=== PATIENT | female | born 1950 | race Caucasian/White ===

== ENCOUNTER 2017-11-01 16:20 | Inpatient (IN) | payer OTHER, MEDICARE ==
[~2017-11-01] VITALS: Ht 149.9 cm; Wt 65.9 kg
[2017-11-01 16:28] VITALS: BP 166/72; PULSE 79; RESP 16; TEMP 97.9; O2SAT 98
[2017-11-01] MEDS ORDERED: LIPI40TA PO (16:36)
[2017-11-01] MEDS ORDERED: AMLO5 PO (16:36)
--- NOTE | 2017-11-01 17:23 | PD ---
HPI Chief Complaint: Psychiatric Symptoms Time Seen by Provider: 16:57 Travel History International Travel<30 days: No Contact w/Intl Traveler<30days: No Traveled to known affect area: No History of Present Illness HPI 67-year-old female presents under a King act initiated by the police department. According to her paperwork the patient was sent a regular basis, has a history of schizophrenia per her daughter, is noncompliant with medications. The patient denies any history of schizophrenia but she does endorse visual hallucinations. She reports that today she was feeling depressed and she had passive suicidal thoughts. She denies any drug use or alcohol use. She denies any past psychiatric history. She does report that 2- 3 weeks ago she took four Lipitor tablets as a suicidal gesture. She denies any ingestions today. She has no other complaints at this time. PFSH Past Medical History Anxiety: Yes Depression: Yes Cancer: Yes (CERVICAL CA) Cardiovascular Problems: Yes High Cholesterol: Yes Diminished Hearing: No Hypertension: Yes Medical other: Yes (RADIOTHERAPY) Psychiatric: Yes Schizophrenia: Yes Tetanus Vaccination: > 5 Years Influenza Vaccination: No : 5 Para: 5 Past Surgical History Gynecologic Surgery: Yes Hysterectomy: Yes Social History Alcohol Use: Yes Tobacco Use: No Substance Use: No Allergies-Medications (Allergen,Severity, Reaction): Coded Allergies: No Known Allergies (Verified Allergy, Unknown, 11/01/17) Reported Meds & Prescriptions Reported Meds & Active Scripts Active Reported Norvasc (Amlodipine Besylate) 5 Mg Tab 5 Mg PO DAILY Lipitor (Atorvastatin Calcium) 40 Mg Tab 40 Mg PO HS Review of Systems Except as stated in HPI: all other systems reviewed are Neg Physical Exam Narrative GENERAL: Well-developed well-nourished female in no acute distress SKIN: Warm and dry. HEAD: Atraumatic. Normocephalic. EYES: Pupils equal and round. No scleral icterus. No injection or drainage. ENT: No nasal bleeding or discharge. Mucous membranes pink and moist. NECK: Trachea midline. No JVD. CARDIOVASCULAR: Regular rate and rhythm. No murmur appreciated. RESPIRATORY: No accessory muscle use. Clear to auscultation. Breath sounds equal bilaterally. GASTROINTESTINAL: Abdomen soft, non-tender, nondistended. Hepatic and splenic margins not palpable. MUSCULOSKELETAL: No obvious deformities. No clubbing. No cyanosis. No edema. NEUROLOGICAL: Awake and alert. No obvious cranial nerve deficits. Motor grossly within normal limits. Normal speech. PSYCHIATRIC: Appropriate mood and affect; insight and judgment normal. Data Data Last Documented VS Vital Signs Date Time Temp Pulse Resp B/P (MAP) Pulse Ox O2 Delivery O2 Flow Rate FiO2 11/01/17 16:30 76 11/01/17 16:28 97.9 16 166/72 (103) 98 Orders Orders Complete Blood Count With Diff (11/01/17 16:39) Comprehensive Metabolic Panel (11/01/17 16:39) Thyroid Stimulating Hormone (11/01/17 16:39) Psych Screen (11/01/17 16:39) Drug Screen, Random Urine (11/01/17 16:39) Alcohol (Ethanol) (11/01/17 16:39) Labs Laboratory Tests Test 11/01/17 16:52 White Blood Count 9.5 TH/MM3 Red Blood Count 4.87 MIL/MM3 Hemoglobin 13.7 GM/DL Hematocrit 40.2 % Mean Corpuscular Volume 82.6 FL Mean Corpuscular Hemoglobin 28.1 PG Mean Corpuscular Hemoglobin Concent 34.0 % Red Cell Distribution Width 14.5 % Platelet Count 248 TH/MM3 Mean Platelet Volume 8.5 FL Neutrophils (%) (Auto) 75.5 % Lymphocytes (%) (Auto) 16.6 % Monocytes (%) (Auto) 6.3 % Eosinophils (%) (Auto) 1.1 % Basophils (%) (Auto) 0.5 % Neutrophils # (Auto) 7.2 TH/MM3 Lymphocytes # (Auto) 1.6 TH/MM3 Monocytes # (Auto) 0.6 TH/MM3 Eosinophils # (Auto) 0.1 TH/MM3 Basophils # (Auto) 0.0 TH/MM3 CBC Comment DIFF FINAL Differential Comment Blood Urea Nitrogen 14 MG/DL Creatinine 0.67 MG/DL Random Glucose 84 MG/DL Total Protein 7.3 GM/DL Albumin 3.7 GM/DL Calcium Level 9.6 MG/DL Alkaline Phosphatase 154 U/L Aspartate Amino Transf (AST/SGOT) 13 U/L Alanine Aminotransferase (ALT/SGPT) 24 U/L Total Bilirubin 0.6 MG/DL Sodium Level 140 MEQ/L Potassium Level 3.1 MEQ/L Chloride Level 105 MEQ/L Carbon Dioxide Level 29.2 MEQ/L Anion Gap 6 MEQ/L Estimat Glomerular Filtration Rate 88 ML/MIN Thyroid Stimulating Hormone 3rd Gen 1.570 uIU/ML Ethyl Alcohol Level LESS THAN 3 MG/DL MDM Medical Decision Making Medical Screen Exam Complete: Yes Emergency Medical Condition: Yes Medical Record Reviewed: Yes Differential Diagnosis Schizophrenia, medication noncompliance, acute psychosis, substance induced mood disorder, encephalitis Narrative Course 67-year-old female presents under King act for psychiatric evaluation Mental health screening discussed with the patient. Psychiatric screen ordered. Potassium 3.1, oral potassium chloride was ordered. The patient is medically psychiatric disposition. Diagnosis Primary Impression: Auditory hallucinations Additional Impressions: Suicidal ideation Hypokalemia Jesse Jones Nov 01, 2017 17:23
[2017-11-01 17:25] LABS: AUTOMATED NEUTROPHIL # 7.2 TH/MM3 (1.8-7.7); BASOPHIL % 0.5 % (0.0-2.0); EOSINOPHIL # 0.1 TH/MM3 (0-0.4); EOSINOPHIL % 1.1 % (0.0-4.0); HEMATOCRIT 40.2 % (35.0-46.0); HEMOGLOBIN 13.7 GM/DL (11.6-15.3); LYMPH % 16.6 % (9.0-44.0); LYMPHOCYTE # 1.6 TH/MM3 (1.0-4.8); MEAN CELL VOLUME 82.6 FL (80.0-100.0); MEAN CORPUSCULAR HEMOGLOBIN 28.1 PG (27.0-34.0); MEAN PLATELET VOLUME 8.5 FL (7.0-11.0); MONO % 6.3 % (0.0-8.0); MONOCYTE # 0.6 TH/MM3 (0-0.9); NEUT % 75.5 % (16.0-70.0); PLATELET COUNT 248 TH/MM3 (150-450); RED BLOOD COUNT 4.87 MIL/MM3 (4.00-5.30); RED CELL DISTRIBUTION WIDTH 14.5 % (11.6-17.2); WHITE BLOOD COUNT 9.5 TH/MM3 (4.0-11.0)
[2017-11-01 17:36] LABS: ALBUMIN 3.7 GM/DL (3.4-5.0); AST (GOT) 13 U/L (15-37); BICARBONATE 29.2 MEQ/L (21.0-32.0); BLOOD UREA NITROGEN 14 MG/DL (7-18); CALCIUM 9.6 MG/DL (8.5-10.1); CHLORIDE 105 MEQ/L (98-107); CREATININE 0.67 MG/DL (0.50-1.00); GLOMERULAR FILTRATION RATE 88 ML/MIN (>89); GLUCOSE,RANDOM 84 MG/DL (74-106); SODIUM (NA) 140 MEQ/L (136-145)
[2017-11-01 17:37] LABS: ALT (GPT) 24 U/L (10-53)
[2017-11-01 17:46] LABS: ALKALINE PHOSPHATASE 154 U/L (45-117); TOTAL BILIRUBIN ADULT 0.6 MG/DL (0.2-1.0); TOTAL PROTEIN 7.3 GM/DL (6.4-8.2)
[2017-11-01] MEDS ORDERED: POTASSIUM CHLORIDE 20 MEQ CONTROLLED RELEASE TAB PO ONE (18:15)
[2017-11-01] MEDS ORDERED: amLODIPine BESYLATE 5 MG TAB PO ONE (22:00)
[2017-11-02 02:00] VITALS: BP 173/88; PULSE 82; RESP 16; TEMP 97.8; O2SAT 98
[2017-11-02] MEDS ORDERED: diphenhydrAMINE HCL 50 MG/ML VIAL IM PRN (03:00)
[2017-11-02] MEDS ORDERED: ALUMINUM/MAGNESIUM/SIMETH 30 ML CUP PO PRN ×2 (03:00→13:45)
[2017-11-02] MEDS ORDERED: ACETAMINOPHEN 325 MG TAB PO PRN (03:00)
[2017-11-02] MEDS ORDERED: MAGNESIUM HYDROXIDE SUSP 30 ML CUP PO PRN ×2 (03:00→13:45)
[2017-11-02] MEDS ORDERED: LORazepam 2 MG/ML VIAL - age > 65 yrs IM PRN (03:00)
[2017-11-02] MEDS ORDERED: LORazepam 0.5 MG TAB age > 65 yrs PO PRN (03:00)
[2017-11-02] MEDS ORDERED: diphenhydrAMINE HCL 50 MG CAP PO PRN ×2 (03:00→21:00)
[2017-11-02 05:30] VITALS: BP 172/69; PULSE 73; RESP 18; TEMP 97.4; O2SAT 99
[2017-11-02 08:42] LABS: BICARBONATE 29.6 MEQ/L (21.0-32.0); BLOOD UREA NITROGEN 11 MG/DL (7-18); CALCIUM 9.1 MG/DL (8.5-10.1); CHLORIDE 107 MEQ/L (98-107); CREATININE 0.62 MG/DL (0.50-1.00); GLOMERULAR FILTRATION RATE 97 ML/MIN (>89); GLUCOSE,RANDOM 94 MG/DL (74-106); SODIUM (NA) 143 MEQ/L (136-145)
[2017-11-02 08:43] LABS: CHOLESTEROL 111 MG/DL (120-200); TRIGLYCERIDES 93 MG/DL (42-150)
[2017-11-02 08:46] LABS: CHOLESTEROL/ HDL RATIO 2.41 RATIO; LDL CHOLESTEROL 46 MG/DL (0-99)
[2017-11-02 11:02] LABS: HEMOGLOBIN A1C 5.6 % (4.3-6.0)
[2017-11-02] MEDS ORDERED: hydrOXYzine HCL 50 MG TAB PO PRN (13:45)
--- NOTE | 2017-11-02 14:04 | HHI.HP ---
Provisional Diagnosis Admission Date Nov 02, 2017 at 00:59 [place] I. 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 Express and informed consent means consent voluntarily given in writing, by a competent person, after sufficient explanation and disclosure of the subject matter involved to enable the person to make a knowing and willful decision without any element of force, fraud, deceit, duress, or other form of constraint or coercion. This person is 18 years of age or older, is not now known to be incompetent to consent to treatment with a guardian advocate, and does not have a health care surrogate or proxy currently making medical treatment decisions. I have found this person to be one of the following: xxx[] Competent to provide express and informed consent, as defined above, for voluntary admission to this facility and is competent to provide express and informed consent for treatment. He/she has the consistent capacity to make well reasoned, willful, and knowing decisions concerning his or her medical or mental health treatment. The person fully and consistently understands the purpose of the admission for examination/placement and is fully capable of personally exercising all rights assured [place] Incompetent to provide express and informed consent to voluntary admission, and this is incompetent to provide express and informed consent to treatment. The person must be transferred to involuntary status and a petition for a guardian advocate filed with the Circuit Court. [] Refusing to provide express and informed consent to voluntary admission but is competent to provide express and informed consent for treatment. The person must be discharged or transferred to involuntary status. Form shall be completed within 24 hours of a person's arrival at the receiving facility and filed in the clinical record of each person: 1. Admitted on a voluntary basis 2. Permitted to provide express and informed consent to his/her own treatment 3. Allowed to transfer from involuntary to voluntary status 4. Prior to permitting a person to consent to his or her own treatment after having been previously found incompetent to consent to treatment. History of Present Illness Capacity: Has Capacity Psych Chief Complaint: patient sad with increased auditory hallucinations HPI Patient is a 67 her white female who initially comes here under King act by the [facility]'s office dated 11/01/17 to 20 p.m. that document reviewed and initially states that upon speaking with Rose she advised that she hears voices on a regular basis that she has been advised that they are not real where she believes that they are Rose's daughter Hannah advised that Rose was diagnosed with schizophrenia and is off her medications were Rose denies any such diagnoses Rose advised me that the voices say that they are going to take her grandson and that approximately 2-3 weeks ago she took for a 12 a statin 40 mg tablets with intent to kill herself but only made her sick Rose also advised that she had thoughts of killing herself today but she is not going to do it. Patient seen screened in the ED urine toxicology negative blood alcohol level negative. Patient seen in her room with nurse Roxi. She is alert oriented [place] female. She is calm and cooperative with me she acknowledges fairly rapid onset of auditory hallucinations of people talking to her a few weeks ago. She states these voices a somewhat threatening to her. She states she feels better and safe here on the psychiatric unit. She denies any alcohol or drugs related to this. She denies any prior psychiatric contact hospitalization her psychotropic medications. She is a her of 47 years about 2 years ago she acknowledges continued depression with crying spells there is insomnia has been aggravated by the auditory hallucinations. There is decreased concentration and attention with increased irritability. He does mention is been some intermittent suicidal ideation. Patient lives with her mother who is 80+ years old and her 4-year-old grandson by her son. It appears the boys mother is incarcerated. We did discuss treatment. I feel the slight does have a of depression that may be the underlying etiology of the psychotic features. We did discuss medications we'll start patient on Lexapro 10 mg in the morning and Zyprexa 5 mg at bedtime. I do feel this patient has the capacity to sign for her hospitalization and for medications thus I'll lift the King act allow patient to sign voluntary. Hopeless to be fairly short Meredith temperature family with follow-up mental health care the community Review of Systems Constitutional: DENIES: Diaphoretic episodes, Fatigue, Fever, Weight gain, Weight loss, Chills, Dizziness, Change in appetite, Night Sweats Endocrine: DENIES: Abnorml menstrual pattern, Heat/cold intolerance, Polydipsia , Polyuria, Polyphagia Eyes: DENIES: Blurred vision, Diplopia, Eye inflammation, Eye pain, Vision loss , Photosensitivity, Double Vision Ears, nose, mouth, throat: DENIES: Tinnitus, Hearing loss, Vertigo, Nasal discharge, Oral lesions, Throat pain, Hoarseness, Ear Pain, Running Nose, Epistaxis, Sinus Pain, Toothache, Odynophagia Respiratory: DENIES: Apneas, Cough, Snoring, Wheezing, Hemoptysis, Sputum production, Shortness of breath Cardiovascular: DENIES: Chest pain, Palpitations, Syncope, Dyspnea on Exertion , PND, Lower Extremity Edema, Orthopnea, Claudication Gastrointestinal: DENIES: Abdominal pain, Black stools, Bloody stools, Constipation, Diarrhea, Nausea, Vomiting, Difficulty Swallowing, Anorexia Genitourinary: DENIES: Abnormal vaginal bleeding, Dysmenorrhea, Dyspareunia, Sexual dysfunction, Urinary frequency, Urinary incontinence, Urgency, Hematuria , Dysuria, Nocturia, Vaginal discharge Musculoskeletal: DENIES: Joint pain, Muscle aches, Stiffness, Joint Swelling, Back pain, Neck pain Integumentary: DENIES: Abnormal pigmentation, Pruritus, Rash, Nail changes, Breast masses, Breast skin changes, Nipple discharge Hematologic/lymphatic: DENIES: Bruising, Lymphadenopathy Immunologic/allergic: DENIES: Eczema, Urticaria Neurologic: DENIES: Abnormal gait, Headache, Localized weakness, Paresthesias, Seizures, Speech Problems, Tremor, Poor Balance Psychiatric: COMPLAINS OF: Anxiety, Depression, Hallucinations, Suicidal Ideation Past Psych History Psychological trauma history Patient denies Violence risk - others (6 mos) Low Violence risk - self (6 mos) Low to moderate Substance Abuse History Drugs/Alcohol past 12 months Denies Past Family Social History Coded Allergies: No Known Allergies (Verified Allergy, Unknown, 11/01/17) Reported Medications Amlodipine (Norvasc) 5 Mg Tab, 5 MG PO DAILY for Blood Pressure Management, #30 TAB 0 Refills 11/01/17 Atorvastatin (Lipitor) 40 Mg Tab, 40 MG PO HS for Cholesterol Management, #30 TAB 0 Refills 11/01/17 Current Medications Medications (Trade) Dose Ordered Sig/Mary Beth Route Start Time Stop Time Status Last Admin (Tylenol) 650 mg Q4H PRN PO 11/02/17 03:00 (Milk Of Magnesia Liq) 30 ml DAILY PRN PO 11/02/17 03:00 (Mag-Al Plus Susp Liq) 30 ml Q6H PRN PO 11/02/17 03:00 (Lexapro) 10 mg DAILY PO 11/03/17 09:00 UNV (ZyPREXA) 5 mg HS PO 11/02/17 21:00 UNV (Benadryl) 50 mg HS PRN PO 11/02/17 13:45 UNV (Milk Of Magnesia Liq) 30 ml DAILY PRN PO 11/02/17 13:45 UNV (Mag-Al Plus Susp Liq) 30 ml Q6H PRN PO 11/02/17 13:45 UNV (Atarax) 50 mg Q6H PRN PO 11/02/17 13:45 UNV (Norvasc) 5 mg DAILY PO 11/03/17 09:00 UNV (Lipitor) 40 mg HS PO 11/02/17 21:00 UNV Family Psych History Denies Social History Patient was made 49 years 2 years ago patient has 4 daughters Patient's Strengths (min. 2) Patient verbal intellect is health care cooperative Physical Exam Patient medically cleared in ED at the present time patient sitting quietly in her room she is in no acute distress, no respiratory distress, no complaints of abdominal pain, patient moves all 4 extremities some pain in her right leg patient does use a walker Vital Signs Vital Signs Date Time Temp Pulse Resp B/P (MAP) Pulse Ox O2 Delivery O2 Flow Rate FiO2 11/02/17 05:30 97.4 73 18 172/69 (103) 99 I/O 11/02/17 11/02/17 11/03/17 08:00 16:00 00:00 Intake Total 240 ml 240 ml Balance 240 ml 240 ml Lab Results Test 11/01/17 16:52 11/01/17 16:54 11/02/17 06:11 White Blood Count 9.5 TH/MM3 Red Blood Count 4.87 MIL/MM3 Hemoglobin 13.7 GM/DL Hematocrit 40.2 % Mean Corpuscular Volume 82.6 FL Mean Corpuscular Hemoglobin 28.1 PG Mean Corpuscular Hemoglobin Concent 34.0 % Red Cell Distribution Width 14.5 % Platelet Count 248 TH/MM3 Mean Platelet Volume 8.5 FL Neutrophils (%) (Auto) 75.5 % Lymphocytes (%) (Auto) 16.6 % Monocytes (%) (Auto) 6.3 % Eosinophils (%) (Auto) 1.1 % Basophils (%) (Auto) 0.5 % Neutrophils # (Auto) 7.2 TH/MM3 Lymphocytes # (Auto) 1.6 TH/MM3 Monocytes # (Auto) 0.6 TH/MM3 Eosinophils # (Auto) 0.1 TH/MM3 Basophils # (Auto) 0.0 TH/MM3 CBC Comment DIFF FINAL Differential Comment Blood Urea Nitrogen 14 MG/DL 11 MG/DL Creatinine 0.67 MG/DL 0.62 MG/DL Random Glucose 84 MG/DL 94 MG/DL Total Protein 7.3 GM/DL Albumin 3.7 GM/DL Calcium Level 9.6 MG/DL 9.1 MG/DL Alkaline Phosphatase 154 U/L Aspartate Amino Transf (AST/SGOT) 13 U/L Alanine Aminotransferase (ALT/SGPT) 24 U/L Total Bilirubin 0.6 MG/DL Sodium Level 140 MEQ/L 143 MEQ/L Potassium Level 3.1 MEQ/L 3.3 MEQ/L Chloride Level 105 MEQ/L 107 MEQ/L Carbon Dioxide Level 29.2 MEQ/L 29.6 MEQ/L Anion Gap 6 MEQ/L 6 MEQ/L Estimat Glomerular Filtration Rate 88 ML/MIN 97 ML/MIN Thyroid Stimulating Hormone 3rd Gen 1.570 uIU/ML Ethyl Alcohol Level LESS THAN 3 MG/DL Urine Opiates Screen NEG Urine Barbiturates Screen NEG Urine Amphetamines Screen NEG Urine Benzodiazepines Screen NEG Urine Cocaine Screen NEG Urine Cannabinoids Screen NEG Hemoglobin A1c 5.6 % Triglycerides Level 93 MG/DL Cholesterol Level 111 MG/DL LDL Cholesterol 46 MG/DL HDL Cholesterol 46.0 MG/DL Cholesterol/HDL Ratio 2.41 RATIO Mental Status Examination Appearance: Appropriate Consciousness: Alert Orientation: x4 Motor Activity: Other (patient uses walker has chronic issues with right leg) Speech: Unremarkable Language: Adequate Fund of Knowledge: Adequate Attention and Concentration: Adequate Memory: Unremarkable Mood: Sad Affect: Other (slight decrease range and intensity) Thought Process & Associations: Linear Thought Content: Hallucinations Hallucination Type: Visual Delusion Type: Paranoid Suicidal Ideation: No (patient denies) Suicidal Plan: No Suicidal Intention: No Homicidal Ideation: No Homicidal Plan: No Homicidal Intention: No Insight: Poor Judgment: Poor Assessment & Plan Problem List: (1) Depression, major, recurrent, severe with psychosis ICD Codes: F33.3 - Major depressive disorder, recurrent, severe with psychotic symptoms Assessment & Plan Estimated LOS: 5-7 days this time patient meets criteria for inpatient psychiatric hospitalization. I feel she has the capacity to sign voluntary thus will lift King act allow her sign voluntary. We will hospitalist consult will us related to a medical issues. We'll start medication as listed above. Discharge Planning Probable return home to family Request HC Surrog/Guard Advoc?: No Carlito Fisher MD Nov 02, 2017 14:04
--- NOTE | 2017-11-02 17:45 | PD.CONS ---
HPI Service [facility] Hospitalists Consult Requested By Dr Fisher Reason for Consult Management of medical conditions. Primary Care Physician Unknown Diagnoses: History of Present Illness This is a 67-year-old female with past medical history of hypertension, hyperlipidemia who presents to [facility] under a King act by the [facility]'s office dated 11/01/17. The King act documented initially states that upon speaking with Barb she said that she was doing boluses on a regular basis and that she has been advised that they are not real. Patient's daughter states that the patient has history of schizophrenia and is of her medications. Apparently the patient stated she had suicidal thoughts. The patient states that she was crying a lot and that is why her daughter called the police. The patient denies chest pain, shortness of breath , admits of headache which he usually attributes to elevated blood pressure. RN also states that the patient's potassium is low. Otherwise the patient denies any dysuria, abdominal pain, nausea, vomiting, cough, shortness of breath. I am being consulted to help manage medical issues. Review of Systems As per HPI, other systems reviewed by me and negative. Past Family Social History Allergies: Coded Allergies: No Known Allergies (Verified Allergy, Unknown, 11/01/17) Past Medical History Hypertension, hyperlipidemia, cervical cancer status post total abdominal hysterectomy status post chemotherapy and radiation therapy. Past Surgical History Total abdominal hysterectomy with bilateral salpingo-oophorectomy. Reported Medications Reported Meds & Active Scripts Active Reported Norvasc (Amlodipine Besylate) 5 Mg Tab 5 Mg PO DAILY Lipitor (Atorvastatin Calcium) 40 Mg Tab 40 Mg PO HS Active Ordered Medications Current Medications Medications (Trade) Dose Ordered Sig/Mary Beth Route Start Time Stop Time Status Last Admin (Tylenol) 650 mg Q4H PRN PO 11/02/17 03:00 (Milk Of Magnesia Liq) 30 ml DAILY PRN PO 11/02/17 03:00 (Mag-Al Plus Susp Liq) 30 ml Q6H PRN PO 11/02/17 03:00 (Lexapro) 10 mg DAILY PO 11/03/17 09:00 (ZyPREXA) 5 mg HS PO 11/02/17 21:00 11/02/17 20:02 (Benadryl) 50 mg HS PRN PO 11/02/17 21:00 (Atarax) 50 mg Q6H PRN PO 11/02/17 13:45 (Lipitor) 40 mg HS PO 11/02/17 21:00 11/02/17 20:02 (Catapres) 0.1 mg Q6H PRN PO 11/02/17 17:30 11/02/17 18:00 (Norvasc) 10 mg DAILY PO 11/02/17 18:00 11/02/17 18:00 Family History Patient's mother had diabetes and hypertension. Social History Patient denies smoking. The patient states that she occasionally drinks wine. The patient denies illicit drug use. The patient states she is and has 5 children. Physical Exam Vital Signs Vital Signs Date Time Temp Pulse Resp B/P (MAP) Pulse Ox O2 Delivery O2 Flow Rate FiO2 11/02/17 05:30 97.4 73 18 172/69 (103) 99 11/02/17 02:00 97.8 82 16 173/88 (116) 98 Physical Exam GENERAL: This is a well-nourished, well-developed patient, in no apparent distress. SKIN: No rashes, ecchymoses or lesions. Cool and dry. HEAD: Atraumatic. Normocephalic. No temporal or scalp tenderness. EYES: Pupils equal round and reactive. Extraocular motions intact. No scleral icterus. No injection or drainage. ENT: Nose without bleeding, purulent drainage or septal hematoma. Throat without erythema, tonsillar hypertrophy or exudate. Uvula midline. Airway patent. NECK: Trachea midline. No JVD or lymphadenopathy. Supple, nontender, no meningeal signs. CARDIOVASCULAR: Regular rate and rhythm without murmurs, gallops, or rubs. RESPIRATORY: Clear to auscultation. Breath sounds equal bilaterally. No wheezes , rales, or rhonchi. GASTROINTESTINAL: Abdomen soft, non-tender, nondistended. No hepato-splenomegaly , or palpable masses. No guarding. MUSCULOSKELETAL: Extremities without clubbing, cyanosis, or edema. No joint tenderness, effusion, or edema noted. No calf tenderness. Negative Homans sign bilaterally. NEUROLOGICAL: Awake and alert. Cranial nerves II through XII intact. Motor and sensory grossly within normal limits. Five out of 5 muscle strength in all muscle groups. Normal speech. Laboratory Laboratory Tests Test 2/28/18 06:11 Blood Urea Nitrogen 11 Creatinine 0.62 Random Glucose 94 Calcium Level 9.1 Sodium Level 143 Potassium Level 3.3 Chloride Level 107 Carbon Dioxide Level 29.6 Anion Gap 6 Estimat Glomerular Filtration Rate 97 Hemoglobin A1c 5.6 Triglycerides Level 93 Cholesterol Level 111 LDL Cholesterol 46 HDL Cholesterol 46.0 Cholesterol/HDL Ratio 2.41 Result Diagram: 11/01/17 1652 11/02/17 0611 Assessment and Plan Problem List: (1) Suicidal ideation ICD Code: R45.851 - Suicidal ideations Status: Acute Plan: Management of psychiatric issues as per psychiatry. Patient has been started on Zyprexa and Lexapro. (2) Depression, major, recurrent, severe with psychosis ICD Code: F33.3 - Major depressive disorder, recurrent, severe with psychotic symptoms Plan: Management as per psychiatry. (3) Hypokalemia ICD Code: E87.6 - Hypokalemia Status: Acute Plan: Likely secondary to decreased oral intake. Replace orally and continue to monitor BMP. (4) Uncontrolled hypertension ICD Code: I10 - Essential (primary) hypertension Plan: Patient blood pressure severely elevated in the 170 systolic. Resume amlodipine 10 mg p.o. daily now and will place on clonidine 0.1 mg p.o. every 6 hours as needed for systolic blood pressure more than 160. Monitor vital signs. (5) Hyperlipidemia ICD Code: E78.5 - Hyperlipidemia, unspecified Plan: Continue statin. Fasting lipid profile shows an LDL of 46, total cholesterol 111. Assessment and Plan DVT prophylaxis: Encourage ambulation. Code Status Full code Discussed Condition With Patient, RN. Problem Qualifiers (1) Hyperlipidemia: Qualified Codes: E78.5 - Hyperlipidemia, unspecified Dorian Weber MD Nov 02, 2017 17:45
[2017-11-02 18:00] VITALS: BP 178/81; PULSE 80; RESP 18; TEMP 97.5; O2SAT 99
[2017-11-02] MEDS: cloNIDine HCL 0.1 MG TAB PO PRN (18:00)
[2017-11-02] MEDS ORDERED: POTASSIUM CHLORIDE 10 MEQ CONTROLLED RELEASE TAB PO ONE (18:00)
[2017-11-02 20:00] VITALS: BP 134/62; PULSE 75; RESP 16; TEMP 97.9; O2SAT 99
[2017-11-02] MEDS: ATORVASTATIN 40 MG TAB PO SCH (20:02)
[2017-11-02] MEDS: OLANZapine 5 MG TAB PO SCH (20:02)
[2017-11-03 05:44] VITALS: BP 127/63; PULSE 68; RESP 16; TEMP 98.1; O2SAT 100
[2017-11-03 06:18] LABS: ALBUMIN 2.9 GM/DL (3.4-5.0); ALT (GPT) 19 U/L (10-53); AST (GOT) 14 U/L (15-37); BICARBONATE 28.3 MEQ/L (21.0-32.0); BLOOD UREA NITROGEN 18 MG/DL (7-18); CALCIUM 8.7 MG/DL (8.5-10.1); CHLORIDE 108 MEQ/L (98-107); CREATININE 0.64 MG/DL (0.50-1.00); GLOMERULAR FILTRATION RATE 93 ML/MIN (>89); GLUCOSE,RANDOM 96 MG/DL (74-106); SODIUM (NA) 142 MEQ/L (136-145)
[2017-11-03 06:31] LABS: ALKALINE PHOSPHATASE 110 U/L (45-117); TOTAL BILIRUBIN ADULT 0.5 MG/DL (0.2-1.0); TOTAL PROTEIN 5.9 GM/DL (6.4-8.2)
[2017-11-03] MEDS: ESCITALOPRAM OXALATE 10 MG TAB PO SCH (08:14)
[2017-11-03] MEDS ORDERED: amLODIPine BESYLATE 5 MG TAB PO SCH (09:00)
--- NOTE | 2017-11-03 09:52 | HHI.PYPN ---
Subjective Chief Complaint: patient sad with increased auditory hallucinations Remarks Patient seen in day room with nurse Sherry, chart reviewed, patient discussed with nurse. Patient compliant medications. Patient alert calm pleasant with me today said she slept well last night. Now denies any suicidality homicidality visions or voices. For now continue treatment Review of Systems Except as stated in HPI: all other systems reviewed are Neg Mental Status Examination Appearance: Appropriate Consciousness: Alert Orientation: x4 Motor Activity: Other (patient uses walker has chronic issues with right leg) Speech: Unremarkable Language: Adequate Fund of Knowledge: Adequate Attention and Concentration: Adequate Memory: Unremarkable Mood: Sad Affect: Other (slight decrease range and intensity) Thought Process & Associations: Linear Thought Content: Hallucinations Hallucination Type: None (denies today) Delusion Type: Paranoid (denies today) Suicidal Ideation: No (patient denies) Suicidal Plan: No Suicidal Intention: No Homicidal Ideation: No Homicidal Plan: No Homicidal Intention: No Insight: Poor Judgment: Poor Results Labs Test 11/03/17 05:45 Blood Urea Nitrogen 18 MG/DL Creatinine 0.64 MG/DL Random Glucose 96 MG/DL Total Protein 5.9 GM/DL Albumin 2.9 GM/DL Calcium Level 8.7 MG/DL Alkaline Phosphatase 110 U/L Aspartate Amino Transf (AST/SGOT) 14 U/L Alanine Aminotransferase (ALT/SGPT) 19 U/L Total Bilirubin 0.5 MG/DL Sodium Level 142 MEQ/L Potassium Level 3.7 MEQ/L Chloride Level 108 MEQ/L Carbon Dioxide Level 28.3 MEQ/L Anion Gap 6 MEQ/L Estimat Glomerular Filtration Rate 93 ML/MIN Thyroid Stimulating Hormone 3rd Gen 2.220 uIU/ML Vitals/IOs Vital Signs Date Time Temp Pulse Resp B/P (MAP) Pulse Ox O2 Delivery O2 Flow Rate FiO2 11/03/17 05:44 98.1 68 16 127/63 (84) 100 Intake and Output 11/03/17 11/03/17 11/04/17 08:00 16:00 00:00 Intake Total 480 ml Balance 480 ml Assessment & Plan Problem List: (1) Depression, major, recurrent, severe with psychosis ICD Codes: F33.3 - Major depressive disorder, recurrent, severe with psychotic symptoms Assessment & Plan Estimated LOS: days patient calm cooperative feeling better today said she had a good night sleep. Now denies voices or visions suicidality or homicidality. For now continue treatment Justification for Cont. Inpt. At this time patient decompensated placed on lower level of care Discharge Planning Patient to return home when stabilized Request HC Surrog/Guard Advoc?: No Carlito Fisher MD Nov 03, 2017 09:52
[2017-11-03 11:04] LABS: HEMOGLOBIN A1C 5.7 % (4.3-6.0)
[2017-11-03 17:18] VITALS: BP 166/73; PULSE 64; RESP 16; TEMP 98.6; O2SAT 98
[2017-11-03] MEDS: OLANZapine 5 MG TAB PO SCH (20:37)
[2017-11-03] MEDS: ATORVASTATIN 40 MG TAB PO SCH (20:37)
[2017-11-03 20:45] VITALS: BP 183/79; PULSE 61
[2017-11-03] MEDS: cloNIDine HCL 0.1 MG TAB PO PRN (20:45)
[2017-11-04 06:12] VITALS: BP 101/67; PULSE 65; RESP 16; TEMP 98.2; O2SAT 99
[2017-11-04 08:15] VITALS: BP 99/49; PULSE 61; RESP 17
[2017-11-04] MEDS: ESCITALOPRAM OXALATE 10 MG TAB PO SCH (08:27)
[2017-11-04] MEDS ORDERED: AMLO10 PO (11:27)
[2017-11-04] MEDS ORDERED: ESCI10TA PO (11:27)
[2017-11-04] MEDS ORDERED: LIPI40TA PO (11:27)
[2017-11-04] MEDS ORDERED: OLAN5TAB PO (11:27)
--- NOTE | 2017-11-04 11:34 | HHI.DS ---
Psychiatry Discharge Summary Inpatient Psychiatric care?: Yes Advance Directive: No Reason Not Provided: Due to Patient Condition Mental Health AdvanceDirective: No Health Care Proxy: No Admission Admission Date Nov 02, 2017 at 00:59 Admission Diagnosis: (1) Depression, major, recurrent, severe with psychosis ICD Code: F33.3 - Major depressive disorder, recurrent, severe with psychotic symptoms Brief History Patient is a 67 her white female who initially comes here under King act by the [facility]'s office dated 11/01/17 to 20 p.m. that document reviewed and initially states that upon speaking with Rose she advised that she hears voices on a regular basis that she has been advised that they are not real where she believes that they are Rose's daughter Hannah advised that Rose was diagnosed with schizophrenia and is off her medications were Rose denies any such diagnoses Rose advised me that the voices say that they are going to take her grandson and that approximately 2-3 weeks ago she took for a 12 a statin 40 mg tablets with intent to kill herself but only made her sick Rose also advised that she had thoughts of killing herself today but she is not going to do it. Patient seen screened in the ED urine toxicology negative blood alcohol level negative. Patient seen in her room with nurse Roxi. She is alert oriented [place] female. She is calm and cooperative with me she acknowledges fairly rapid onset of auditory hallucinations of people talking to her a few weeks ago. She states these voices a somewhat threatening to her. She states she feels better and safe here on the psychiatric unit. She denies any alcohol or drugs related to this. She denies any prior psychiatric contact hospitalization her psychotropic medications. She is a her of 47 years about 2 years ago she acknowledges continued depression with crying spells there is insomnia has been aggravated by the auditory hallucinations. There is decreased concentration and attention with increased irritability. He does mention is been some intermittent suicidal ideation. Patient lives with her mother who is 80+ years old and her 4-year-old grandson by her son. It appears the boys mother is incarcerated. We did discuss treatment. I feel the slight does have a of depression that may be the underlying etiology of the psychotic features. We did discuss medications we'll start patient on Lexapro 10 mg in the morning and Zyprexa 5 mg at bedtime. I do feel this patient has the capacity to sign for her hospitalization and for medications thus I'll lift the King act allow patient to sign voluntary. Hopeless to be fairly short Meredith temperature family with follow-up mental health care the [facility] Tobacco Use In Past 30 Days: No Tobacco Past 30 Days Alcohol Use: 2-4 Times Per Month Hospital Course Patient's hospital course was uneventful. She should compliance with medication from day 1. She was no behavioral problems. She has continued to deny any auditory hallucinations. She denies suicidality and homicidality. She has slept well. Entriken communication with patient's family they feel confident with her returning home also. At this time I feel patient reached maximum benefit of this hospitalization. We will allow her to be discharged today she'll be picked up by one of her sons with Rx 1 month in follow-up with her PCP Results Blood Pressure 99 / 49 Vital Signs Date Time Temp Pulse Resp B/P (MAP) Pulse Ox O2 Delivery O2 Flow Rate FiO2 11/04/17 08:15 61 17 99/49 (66) 11/04/17 06:12 98.2 99 Laboratory Tests Test 11/01/17 16:52 11/01/17 16:54 11/02/17 06:11 11/03/17 05:45 Neutrophils (%) (Auto) 75.5 % (16.0-70.0) Alkaline Phosphatase 154 U/L (45-117) Aspartate Amino Transf (AST/SGOT) 13 U/L (15-37) 14 U/L (15-37) Potassium Level 3.1 MEQ/L (3.5-5.1) 3.3 MEQ/L (3.5-5.1) Estimat Glomerular Filtration Rate 88 ML/MIN (>89) Cholesterol Level 111 MG/DL (120-200) Total Protein 5.9 GM/DL (6.4-8.2) Albumin 2.9 GM/DL (3.4-5.0) Chloride Level 108 MEQ/L (98-107) Laboratory Results Test 11/02/17 06:11 11/03/17 05:45 Cholesterol Level 111 MG/DL (120-200) HDL Cholesterol 46.0 MG/DL (40.0-60.0) LDL Cholesterol 46 MG/DL (0-99) Triglycerides Level 93 MG/DL (42-150) Hemoglobin A1c 5.7 % (4.3-6.0) Summary of Procedures None done Pending results at discharge: No Medications # of Antipsychotic meds at D/C: 1 Approp Antipsych med options 1 - Minimum of three failed multiple trials of monotherapy. 2 - Documented plan to taper to monotherapy due to previous use of multiple meds OR cross-taper in progress at D/C. 3 - Documentation of augmentation of Clozapine. 4 - Justification other than those listed in allowable values 1-3, document here : Discharge Discharge Date: Nov 04, 2017 Discharge Diagnosis: (1) Depression, major, recurrent, severe with psychosis Diagnosis: Principal ICD Code: F33.3 - Major depressive disorder, recurrent, severe with psychotic symptoms Pt Condition on Discharge: Stable Discharge Disposition: Discharge Home Discharge Instructions Diet Instructions: As Tolerated, No Restrictions Activities you can perform: Regular-No Restrictions Scheduled Appointment: NATHAN Morgan Appointment Date: Nov 09, 2017 Appointment Time: 4:15pm Discharge Time > 30 minutes Mental Status Examination Appearance: Appropriate Consciousness: Alert Orientation: x4 Motor Activity: Other (patient uses walker has chronic issues with right leg) Speech: Unremarkable Language: Adequate Fund of Knowledge: Adequate Attention and Concentration: Adequate Memory: Unremarkable Mood: Sad Affect: Other (slight decrease range and intensity) Thought Process & Associations: Linear Thought Content: Hallucinations Hallucination Type: None (denies today) Delusion Type: Paranoid (denies today) Suicidal Ideation: No (patient denies) Suicidal Plan: No Suicidal Intention: No Homicidal Ideation: No Homicidal Plan: No Homicidal Intention: No Insight: Poor Judgment: Poor Discharge/Advance Care Plan Health Problems: (1) Depression, major, recurrent, severe with psychosis Goals to promote your health * To prevent worsening of your condition and complications * To maintain your health at the optimal level Directions to meet your goals Take your medications as prescribed Follow your dietary instruction Follow activity as directed Keep your appointments as scheduled Take your immunizations and boosters as scheduled If your symptoms worsen call your PCP, if no PCP go to Urgent Care Center or Emergency Room For 24 questions related to your inpatient stay or results of tests pending at discharge, please contact Dr. Carlito Fisher at Smoking is Dangerous to Your Health. Avoid second hand smoking Carlito Fisher MD Nov 04, 2017 11:34
== END 2017-11-04 14:07 | disposition home or self-care (01) | DRG 885 ==
LOC: NEDAMB 16:20 → NEDA 11-02 00:59 → H250 11-02 02:00
PROVIDERS: ADMIT Psychiatry & Neurology Psychiatry; ATTEND Psychiatry & Neurology Psychiatry
DX: F33.3 Major depressive disorder, recurrent, severe with psychotic symptoms (principal); R45.851 Suicidal ideations; I10 Essential (primary) hypertension; F41.9 Anxiety disorder, unspecified; E87.6 Hypokalemia; G47.00 Insomnia, unspecified; E78.5 Hyperlipidemia, unspecified; Z92.21 Personal history of antineoplastic chemotherapy; Z92.3 Personal history of irradiation; Z85.41 Personal history of malignant neoplasm of cervix uteri
CPT/HCPCS: 80048; 80053; 80061; 80307; 83036; 84443; 85025; 99285